=== PATIENT | male | born 1965 | race American Indian/Alaskan Native ===

== ENCOUNTER 2021-11-04 23:18 | Emergency (ER) | payer MEDICAID ==
[2021-11-04 23:41] VITALS: BP 128/77
--- NOTE | 2021-11-05 04:14 | Emergency Department Report ---
ED General Adult HPI - General Chief complaint: Back Pain/Injury Stated complaint: Back pain and cough PUI?: No Time Seen by Provider: 11/05/21 04:13 Source: patient, RN notes reviewed Mode of arrival: Ambulatory Limitations: No Limitations - History of Present Illness Initial comments: The patient is a pleasant 56-year-old gentleman who is not known to myself previously, who reports occasional exposure to tobacco, but does not smoke, and who is not vaccinated against COVID-19, who presents to the ER today with a complaint of nontraumatic trapezius pain, and dry cough. He denies additional injuries and complaints. This has been going on for a few hours to a few days. He has not taken any pain medication [id number]. He denies additional injuries and complaints. He felt improved after Tylenol and ibuprofen here in the emergency room. -: Gradual, hour(s), days(s) Location: back Radiation: non-radiation Quality: aching Consistency: intermittent Improves with: rest Worsens with: movement (Movement and palpation) - Related Data Previous Rx's Medication Instructions Recorded Last Taken Type Acetaminophen [Non-Aspirin Extra 500 mg PO Q6HR PRN #30 tablet 11/05/21 Unknown Rx Strength] Albuterol Sulfate [Proair 90 mcg IH Q4HR PRN #2 aer.pow.ba 11/05/21 Unknown Rx Respiclick] Ibuprofen [Motrin] 600 mg PO Q8H PRN #30 tablet 11/05/21 Unknown Rx ED Review of Systems ROS: Stated complaint: BODY PAINS Other details as noted in HPI Constitutional: denies: fever Eyes: denies: eye discharge ENT: congestion. denies: epistaxis Respiratory: cough Cardiovascular: denies: chest pain Gastrointestinal: denies: abdominal pain, nausea, vomiting, diarrhea Musculoskeletal: back pain Neurological: denies: weakness ED Past Medical Hx - Past Medical History Previous Medical History?: No - Surgical History Past Surgical History?: No - Medications Home Medications: Home Medications Medication Instructions Recorded Confirmed Last Taken Type Acetaminophen [Non-Aspirin Extra 500 mg PO Q6HR PRN #30 tablet 11/05/21 Unknown Rx Strength] Albuterol Sulfate [Proair 90 mcg IH Q4HR PRN #2 aer.pow.ba 11/05/21 Unknown Rx Respiclick] Ibuprofen [Motrin] 600 mg PO Q8H PRN #30 tablet 11/05/21 Unknown Rx ED Physical Exam - General Limitations: No Limitations General appearance: alert, in no apparent distress - Head Head exam: Present: atraumatic, normocephalic - Eye Eye exam: Present: normal appearance, EOMI. Absent: nystagmus - ENT ENT exam: Present: normal exam, normal orophraynx, mucous membranes moist, normal external ear exam - Neck Neck exam: Present: normal inspection, full ROM. Absent: tenderness, meningism us - Respiratory Respiratory exam: Present: normal lung sounds bilaterally. Absent: respiratory distress, wheezes, rales, rhonchi, stridor, chest wall tenderness - Cardiovascular Cardiovascular Exam: Present: regular rate, normal rhythm, normal heart sounds. Absent: bradycardia, tachycardia, irregular rhythm, systolic murmur, diastolic murmur, rubs, gallop - GI/Abdominal GI/Abdominal exam: Present: soft. Absent: distended, tenderness, guarding, rebound, rigid, pulsatile mass - Rectal Rectal exam: Present: deferred - Extremities Exam Extremities exam: Present: normal inspection, full ROM, other (2+ pulses noted in the bilateral upper and lower extremities. There is no palpable cord. negative Homans sign. Muscular compartments are soft. The pelvis is stable.). Absent: pedal edema, calf tenderness - Back Exam Back exam: Present: normal inspection, full ROM, paraspinal tenderness (Reproducible midline proximal trapezius tenderness.). Absent: tenderness, CVA tenderness (R), CVA tenderness (L), muscle spasm, vertebral tenderness - Neurological Exam Neurological exam: Present: alert, oriented X3, normal gait, other (No facial droop. Tongue midline. Extraocular movements intact bilaterally. Facial sensation intact to light touch in V1, V2, V3 distribution bilaterally. 5 and a 5 strength in 4 extremities. Sensation intact to light touch in 4 extremities.). Absent: motor sensory deficit - Psychiatric Psychiatric exam: Present: normal affect, normal mood - Skin Skin exam: Present: warm, dry, intact, normal color. Absent: rash ED Course Vital Signs 11/04/21 23:36 Temperature 99.3 F Pulse Rate 83 Respiratory 16 Rate Blood Pressure 128/77 [Left] O2 Sat by Pulse 99 Oximetry ED Medical Decision Making - Lab Data Vital Signs 11/04/21 23:36 Temperature 99.3 F Pulse Rate 83 Respiratory 16 Rate Blood Pressure 128/77 [Left] O2 Sat by Pulse 99 Oximetry - Radiology Data Radiology results: report reviewed, image reviewed CHEST 2 VIEWS INDICATION / CLINICAL INFORMATION: Cough, back pain. COMPARISON: None available. FINDINGS: SUPPORT DEVICES: None. HEART / MEDIASTINUM: No significant abnormality. LUNGS / PLEURA: Chronic appearing parenchymal changes are seen throughout each lung without other significant pulmonary abnormalities. No significant pleural effusion. No pneumothorax. ADDITIONAL FINDINGS: No significant additional findings. IMPRESSION: 1. No acute abnormality of the chest. Signer Name: Iasak Kay MD Signed: 11/05/2021 4:08 AM Workstation Name: [id number] - Medical Decision Making Differential diagnosis, including but not limited to: Bronchitis, trapezius sprain, trapezius strain, encounter for medical screening examination Assessment and plan: 56-year-old gentleman, who was afebrile, with reassuring vital signs, with clear lungs, presenting today with reproducible trapezius pain, and dry cough. Saturating well on room air. Physical exam benign and unremarkable with exception of reproducible trapezius tenderness. X-ray of the chest shows no acute findings. Chronic incidental findings noted. As needed albuterol, Tylenol, Motrin as needed for physical pain, outpatient follow-up with primary care. Critical care attestation.: If time is entered above; I have spent that time in minutes in the direct care of this critically ill patient, excluding procedure time. ED Disposition Clinical Impression: Cough, Muscle strain of upper back Disposition: 01 HOME / SELF CARE / HOMELESS Is pt being admited?: No Does the pt Need Aspirin: No Condition: Good Instructions: Muscle Pain, Adult, Acute Bronchitis, Adult Additional Instructions: Please take the pain medication as needed and directed, and cough medication as needed and directed. Please follow-up with a primary care doctor within the next 5 to 10 days. Rest and avoid heavy lifting and strenuous physical activity, alternate ice packs and heat packs as needed for physical pain. Please return to the emergency room right away with new pain, worsened pain, migration of pain, projectile vomiting, change in mental status, confusion, inability tolerate liquid feeds, new, worsened or different symptoms not present on the initial emergency room evaluation. Patient was not found to have any acute or emergent findings today, however, x-ray of the chest suggested nonspecific chronic appearing abnormalities, which should be followed up by an outpatient primary care doctor Prescriptions: Ibuprofen [Motrin] 600 mg PO Q8H PRN #30 tablet PRN Reason: Pain Acetaminophen [Non-Aspirin Extra Strength] 500 mg PO Q6HR PRN #30 tablet PRN Reason: Pain , Severe (7-10) Albuterol Sulfate [Proair Respiclick] 90 mcg IH Q4HR PRN #2 aer.pow.ba PRN Reason: Wheezing Referrals: ELISHA ESCALANTE [Other] - 7-10 days Forms: Work/School Release Form(ED)
[2021-11-05] MEDS ORDERED: ACETAMINOPHEN 325 MG TAB PO ONE (04:21)
[2021-11-05] MEDS ORDERED: IBUPROFEN 400 MG TAB PO ONE (04:21)
--- NOTE | 2021-11-05 05:13 | XRay Report ---
CHEST 2 VIEWS INDICATION / CLINICAL INFORMATION: Cough, back pain. COMPARISON: None available. FINDINGS: SUPPORT DEVICES: None. HEART / MEDIASTINUM: No significant abnormality. LUNGS / PLEURA: Chronic appearing parenchymal changes are seen throughout each lung without other sig nificant pulmonary abnormalities. No significant pleural effusion. No pneumothorax. ADDITIONAL FINDINGS: No significant additional findings. IMPRESSION: 1. No acute abnormality of the chest. Signer Name: Isaak Kay MD Signed: 11/05/2021 5:08 AM Workstation Name: [id number]
== END 2021-11-05 06:25 | disposition home or self-care (01) ==
LOC: ED 23:18
DX: S29.012A Strain of muscle and tendon of back wall of thorax, initial encounter (principal); R05.9 Cough, unspecified; X58.XXXA Exposure to other specified factors, initial encounter; Y93.89 Activity, other specified; Y92.89 Other specified places as the place of occurrence of the external cause; Y99.8 Other external cause status
CPT/HCPCS: 71046; 99283

== ENCOUNTER 2022-05-08 15:36 | Emergency (ER) | payer MEDICAID ==
[2022-05-08 17:01] VITALS: BP 110/63
[2022-05-08 18:04] LABS: Basophils # (Auto) 0.1 K/mm3 (0.0-0.1); Basophils % (Auto) 1.2 % (0.0-1.8); Eosinophils # (Auto) 0.1 K/mm3 (0.0-0.4); Eosinophils % (Auto) 2.2 % (0.0-4.3); Hematocrit 41.2 % (35.5-45.6); Hemoglobin 13.6 gm/dl (11.8-15.2); Lymphocytes # (Auto) 0.6 K/mm3 (1.2-5.4); Lymphocytes % (Auto) 11.3 % (13.4-35.0); Mean Corpuscular HGB Conc 33 % (32-34); Mean Corpuscular Volume 86 fl (84-94); Monocytes # (Auto) 0.6 K/mm3 (0.0-0.8); Monocytes % (Auto) 11.5 % (0.0-7.3); Platelet Count 228 K/mm3 (140-440); Red Blood Count 4.82 M/mm3 (3.65-5.03); Red Cell Distribution Width 15.1 % (13.2-15.2)
[2022-05-08 18:15] LABS: Albumin 4.4 g/dL (3.9-5); Calcium 11.1 mg/dL (8.4-10.2)
[2022-05-08] MEDS ORDERED: SODIUM CHLORIDE 0.9% 1000 ML 1,000 ML IV ONE (22:59)
--- NOTE | 2022-05-09 02:16 | Emergency Department Report ---
ED Abdominal Pain HPI - General Chief Complaint: Abdominal Pain Stated Complaint: ABDOMINAL PAIN Time Seen by Provider: 05/08/22 22:58 Source: patient Mode of arrival: Ambulatory Limitations: No Limitations - History of Present Illness Initial Comments: Is a 56-year-old male who presents for right pain flank pain radiating to suprapubic x2 weeks. Patient states intermittent fever chills malaise. Nausea no vomiting. Symptoms are exacerbated related by movement and p.o. intake. Symptoms are relieved by nothing tried. Patient is tolerating p.o. intake at this time without nausea or vomiting. MD Complaint: abdominal pain - Related Data Previous Rx's Medication Instructions Recorded Last Taken Type Acetaminophen [Non-Aspirin Extra 500 mg PO Q6HR PRN #30 tablet 11/05/21 Unknown Rx Strength] Albuterol Sulfate [Proair 90 mcg IH Q4HR PRN #2 aer.pow.ba 11/05/21 Unknown Rx Respiclick] Ibuprofen [Motrin] 600 mg PO Q8H PRN #30 tablet 11/05/21 Unknown Rx traMADoL [Ultram] 50 mg PO Q6HR PRN #12 tablet 05/09/22 Unknown Rx Allergies Allergy/AdvReac Type Severity Reaction Status Date / Time Penicillins Allergy Hives Verified 05/08/22 17:04 ED Review of Systems ROS: Stated complaint: ABDOMINAL PAIN Other details as noted in HPI Constitutional: denies: chills, fever Eyes: denies: eye pain, eye discharge, vision change ENT: dental pain. denies: congestion Respiratory: denies: cough, shortness of breath, wheezing Cardiovascular: denies: chest pain, palpitations Endocrine: no symptoms reported Gastrointestinal: abdominal pain, nausea, vomiting, diarrhea. denies: constipation Genitourinary: denies: urgency, dysuria Musculoskeletal: denies: back pain, joint swelling, arthralgia Skin: as per HPI. denies: rash, lesions, pruritus Neurological: denies: headache, weakness, numbness, paresthesias, confusion, vertigo Psychiatric: denies: anxiety, depression Hematological/Lymphatic: as per HPI ED Past Medical Hx - Past Medical History Additional medical history: scarodosis, hernia - Surgical History Additional Surgical History: pneumothorax - Social History Smoking Status: Never Smoker - Medications Home Medications: Home Medications Medication Instructions Recorded Confirmed Last Taken Type Acetaminophen [Non-Aspirin Extra 500 mg PO Q6HR PRN #30 tablet 12/19/21 Unknown Rx Strength] Albuterol Sulfate [Proair 90 mcg IH Q4HR PRN #2 aer.pow.ba 11/05/21 Unknown Rx Respiclick] Ibuprofen [Motrin] 600 mg PO Q8H PRN #30 tablet 11/05/21 Unknown Rx traMADoL [Ultram] 50 mg PO Q6HR PRN #12 tablet 05/09/22 Unknown Rx ED Physical Exam - General Limitations: No Limitations General appearance: alert, in no apparent distress - Head Head exam: Present: normocephalic, normal inspection - Eye Eye exam: Present: normal appearance, EOMI Pupils: Present: normal accommodation - ENT ENT exam: Present: mucous membranes moist - Neck Neck exam: Present: normal inspection, full ROM. Absent: tenderness, lymphadenopathy - Respiratory Respiratory exam: Present: normal lung sounds bilaterally. Absent: respiratory distress, wheezes, stridor, chest wall tenderness - Cardiovascular Cardiovascular Exam: Present: regular rate, normal rhythm, normal heart sounds. Absent: systolic murmur, diastolic murmur, rubs, gallop - GI/Abdominal GI/Abdominal exam: Present: soft, tenderness (Right CVA), normal bowel sounds. Absent: distended, guarding, rebound, rigid, bruit, hernia (Right CVA) - Rectal Rectal exam: Present: deferred - exam: Present: other (Referral) - Extremities Exam Extremities exam: Present: normal inspection, full ROM, normal capillary refill. Absent: pedal edema, calf tenderness - Back Exam Back exam: Present: normal inspection, full ROM, CVA tenderness (R). Absent: CVA tenderness (L), paraspinal tenderness, vertebral tenderness - Neurological Exam Neurological exam: Present: alert, oriented X3, CN II-XII intact, normal gait - Psychiatric Psychiatric exam: Present: normal affect, normal mood. Absent: agitated - Skin Skin exam: Present: warm, dry, intact, normal color. Absent: rash ED Course Vital Signs 05/08/22 16:57 Temperature 97.9 F Pulse Rate 53 L Respiratory 14 Rate Blood Pressure 110/63 O2 Sat by Pulse 100 Oximetry ED Medical Decision Making - Lab Data Result diagrams: 05/08/22 17:23 05/08/22 17:23 Labs 05/08/22 05/08/22 17:23 17:23 WBC 5.2 RBC 4.82 Hgb 13.6 Hct 41.2 MCV 86 MCH 28 MCHC 33 RDW 15.1 Plt Count 228 Lymph % (Auto) 11.3 L [place] % (Auto) 11.5 H Eos % (Auto) 2.2 Baso % (Auto) 1.2 Lymph # (Auto) 0.6 L [place] # (Auto) 0.6 Eos # (Auto) 0.1 Baso # (Auto) 0.1 Seg Neutrophils % 73.8 H Seg Neutrophils # 3.9 Sodium 137 Potassium 4.6 Chloride 101.4 Carbon Dioxide 21 L Anion Gap 19 BUN 21 H Creatinine 1.9 H Estimated GFR 45 BUN/Creatinine Ratio 11 Glucose 100 Calcium 11.1 H Total Bilirubin 0.40 AST 27 ALT 23 Alkaline Phosphatase 106 Total Protein 8.4 H Albumin 4.4 Albumin/Globulin Ratio 1.1 Lipase 57 - Radiology Data Radiology results: report reviewed, image reviewed - Medical Decision Making Symptoms improved with medications given in ED. CT abdomen pelvis, plan DC to home, follow-up primary care doctor in 2 to 3 days. Return to emergency department should symptoms worsen. Patient tolerating p.o. challenge without nausea vomiting at this time. Critical care attestation.: If time is entered above; I have spent that time in minutes in the direct care of this critically ill patient, excluding procedure time. ED Disposition Clinical Impression: Abdominal pain Qualifiers: Abdominal location: lower abdomen, unspecified Qualified Code(s): R10.30 - Lower abdominal pain, unspecified Disposition: 01 HOME / SELF CARE / HOMELESS Is pt being admited?: No Does the pt Need Aspirin: No Condition: Stable Instructions: Flank Pain, Adult, [id number], Abdominal Pain, Adult Additional Instructions: Take medications as prescribed, follow-up with your doctor in 2 to 3 days. Return to emergency department should symptoms worsen. Prescriptions: traMADoL [Ultram] 50 mg PO Q6HR PRN #12 tablet PRN Reason: Pain Forms: Work/School Release Form(ED) Time of Disposition: 03:19
[2022-05-09] MEDS ORDERED: SODIUM CHLORIDE 0.9% 1000 ML 1,000 ML ONE (02:32)
--- NOTE | 2022-05-09 08:42 | Cat Scan Report ---
CT ABDOMEN AND PELVIS WITHOUT CONTRAST INDICATION / CLINICAL INFORMATION: Renal stones, r/o obstruction. TECHNIQUE: Axial CT images were obtained through the abdomen and pelvis without IV contrast. All CT scans at this location are performed using CT dose reduction for ALARA by means of automated exposure control. COMPARISON: None available. FINDINGS: LOWER CHEST: Small pleural-based calcified nodules along the left hemidiaphragm. No acute findings wi thin the lower chest. LIVER: No focal lesion. No acute findings. GALLBLADDER / BILE DUCTS: Partially calcified gallstones. No inflammatory changes. Biliary ducts adalgisa ssly unremarkable. SPLEEN: No significant abnormality. PANCREAS: No significant abnormality. ADRENALS: No significant abnormality. KIDNEYS/URETERS: Multiple stones and calcifications are present that may in part reflect medullary ne phrocalcinosis. Additionally there is mild to moderate right hydronephrosis with large 6 mm stone mid right ureter at the level of inferior endplate L5. An additional 3 mm calcification compatible with stone lies just within the right UVJ. Additional left ureteral stone measuring up to 5 mm is present at the level of mid S1 vertebral body. Mild hydronephrosis of the left kidney present. STOMACH / DUODENUM / SMALL BOWEL: The stomach, duodenum, and small bowel demonstrate no significant a bnormality. No specific abnormality of the mesentery demonstrated. COLON: No significant abnormality. APPENDIX: No significant abnormality. PERITONEUM: No free air or free fluid are present within the abdomen or pelvis. LYMPH NODES: No significant adenopathy. AORTA / ARTERIES: No significant abnormality. IVC / VEINS: No significant abnormality. URINARY BLADDER: No significant abnormality. REPRODUCTIVE ORGANS: Uterus is absent. No significant adnexal abnormality. ADDITIONAL ABDOMINAL/PELVIC FINDINGS: None. SKELETAL SYSTEM: No significant abnormality. IMPRESSION: 1. 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 Multiple calcificati ons and stones are present bilaterally. 2. 6 mm stone proximal right ureter with associated hydronephrosis. A second tandem 4 mm stone at the right UVJ also suggested. 3. Proximal to mid left ureteral stone measuring 4 mm with associated mild hydronephrosis. Signer Name: Hank Nunes II, MD Signed: 05/08/2022 11:41 PM Workstation Name: [id number]
== END 2022-05-09 03:49 | disposition home or self-care (01) ==
LOC: ED 15:36
DX: R10.9 Unspecified abdominal pain (principal); Z88.0 Allergy status to penicillin; Z79.899 Other long term (current) drug therapy
CPT/HCPCS: 36415; 74176; 80053; 83690; 85025; 96360; 99284; J7030